=== PATIENT | male | born 1975 | race Two or more races ===

== ENCOUNTER 2018-02-28 17:38 | Emergency (ER) | payer OTHER ==
[2018-02-28 18:27] VITALS: BP 140/86
--- NOTE | 2018-02-28 20:00 | UC ---
GI Bleed HPI - HPI Summary HPI Summary: 42-year-old male comes in to clinic with a chief complaint of dark and black stools for the last 3 days. His stools have been normal in consistency however the didn't either very dark brown or black. His been having 1 bowel movement a day. Is not feel lightheaded. Has been having some epigastric burning discomfort over the last week or more. He's only used ibuprofen once or twice in the last week and a half. His mother of stomach cancer. He's never had a GI bleed in the past. - History Of Current Complaint Chief Complaint: UCGI Stated Complaint: BLACK STOOL Time Seen by Provider: 02/28/18 19:36 Pain Intensity: 0 - Allergies/Home medications Allergies/Adverse Reactions: Allergies Allergy/AdvReac Type Severity Reaction Status Date / Time No Known Allergies Allergy Verified 02/28/18 18:27 Home Medications: Home Medications Ibuprofen TAB* [Motrin TAB* 400 MG] 400 mg PO Q6H PRN 02/28/18 [History Confirmed 02/28/18] PMH/Surg Hx/FS Hx/Imm Hx Previously Healthy: Yes - Surgical History Surgical History: Yes Surgery Procedure, Year, and Place: appy - Family History Known Family History: Positive: Hypertension, Other - His mother from stomach cancer - Social History Occupation: Employed Full-time Alcohol Use: Daily Substance Use Type: None Smoking Status (MU): Never Smoked Tobacco Review of Systems Constitutional: Negative Skin: Negative Eyes: Negative ENT: Negative Respiratory: Negative Cardiovascular: Negative Gastrointestinal: Abdominal Pain - EPIGASTRIC Genitourinary: Negative Motor: Negative Neurovascular: Negative Musculoskeletal: Negative Neurological: Negative Psychological: Negative Is Patient Immunocompromised?: No All Other Systems Reviewed And Are Negative: Yes Physical Exam Triage Information Reviewed: Yes Appearance: Well-Appearing, No Pain Distress, Well-Nourished Vital Signs: Initial Vital Signs Temp 98.4 F 02/28/18 18:19 Pulse 96 02/28/18 18:19 Resp 16 02/28/18 18:19 BP 140/86 02/28/18 18:19 Pulse Ox 98 02/28/18 18:19 Vital Signs Reviewed: Yes Eye Exam: Normal Neck exam: Normal Neck: Positive: Supple Respiratory: Positive: Lungs clear, Normal breath sounds, No respiratory distress Cardiovascular: Positive: RRR Abdomen Description: Positive: Nontender, Soft. Negative: CVA Tenderness (R), CVA Tenderness (L) Bowel Sounds: Positive: Present Male Genital Exam: Positive: Other - STOOL HEMEOCCULT OBTAINED BY DIGITAL RECTAL EXAM Musculoskeletal Exam: Normal Musculoskeletal: Positive: Strength Intact, ROM Intact Neurological Exam: Normal Neurological: Positive: Alert, Muscle Tone Normal Psychological Exam: Normal Psychological: Positive: Age Appropriate Behavior Skin Exam: Normal Bleed Course/Dx - Course Course Of Treatment: Stool Hemoccult is positive. Plan is to start the patient on omeprazole 20 mg by mouth twice a day. He is to follow-up his primary care doctor and I would recommend an EGD due to the family history and his present symptoms. I let the patient know that if things get worse he starts having serge right right red blood in his stool or if he feels lightheaded areas any pain and she get checked again right away. - Differential Dx/Diagnosis Provider Diagnoses: GERD. GI BLEED Discharge - Sign-Out/Discharge Documenting (check all that apply): Patient Departure All imaging exams completed and their final reports reviewed: No Studies - Discharge Plan Condition: Stable Disposition: HOME Prescriptions: Omeprazole CAP* [Prilosec CAP* 20 MG] 20 mg PO BID #30 cap. Patient Education Materials: Gastroesophageal Reflux Disease (ED), Gastrointestinal Bleeding (ED) Ref[place]: [facility] [place] [place]] Jackson Rod MD [Medical Doctor] - Additional Instructions: FOLLOW UP WITH YOUR DOCTOR FOR YOUR GI BLEED. DISCUSS GETTING AN EGD FROM THE [facility]. TAKE OMEPRAZOLE 20MG TWICE A DAY. GO TO THE EMERGENCY DEPARTMENT FOR ANY WORSENING OF YOUR CONDITION; BLOODY STOOLS, YOU FEEL LIGHTHEADED, YOU FEEL ILL, PAIN OR QUESTIONS OR CONCERNS. - Billing Disposition and Condition Condition: STABLE Disposition: Home
== END 2018-02-28 20:15 | disposition home or self-care (01) ==
LOC: UCEAST 17:38
DX: K92.2 Gastrointestinal hemorrhage, unspecified (principal); K21.9 Gastro-esophageal reflux disease without esophagitis
CPT/HCPCS: 82270; 99212; G0463